=== PATIENT | female | born 1985 | race Caucasian/White ===

== ENCOUNTER 2019-06-07 18:40 | Inpatient (IN) | payer OTHER ==
[2019-06-07] MEDS ORDERED: Ringers Lactate 1,000 ML IV PRN (19:03)
[2019-06-07] MEDS ORDERED: PENICILLIN 5 MU in NA CHLORIDE 0.9% 100 ML IV ONE (19:03)
[2019-06-07 19:08] VITALS: BMI 34.4
[2019-06-07] MEDS ORDERED: OXYTOCIN/LR 20 UNIT/1,000 ML BAG IV ONE (19:29)
[2019-06-07 19:30] LABS: Absolute Lymphocytes (CBC) 1.4 K/uL (0.7-4.9); Basophils % 0.4 % (0-1.3); Hematocrit 29.1 % (36.0-45.0); Lymphocytes % 11.4 % (15.3-44.8); MPV 9.7 fL (7.6-11.3); RBC Red Blood Cell Count 3.67 M/uL (3.86-4.86)
[2019-06-07] MEDS ORDERED: OXYTOCIN/LR 20 UNIT/1,000 ML BAG IV SCH (20:00)
[2019-06-07] MEDS ORDERED: Ringers Lactate 1,000 ML IV SCH (20:00)
--- NOTE | 2019-06-07 20:06 | P.PN ---
Date of Service: 06/07/19 SPROM Irregular ctx. Plan: Augment with pitocin, placement of epidural catheter as desires. Exam normal, see dictation.
[2019-06-07] MEDS ORDERED: PENICILLIN 2.5 MU in NA CHLORIDE 0.9% 100 ML IV SCH (23:00)
[2019-06-07] MEDS ORDERED: PENICILLIN G POT 5 MU/VIAL IV ONE (23:15)
[2019-06-07] MEDS ORDERED: NA CHLORIDE 0.9% 50 ML IV ONE (23:26)
[2019-06-07] MEDS ORDERED: ROPIVACAINE HCL 100 ML IV ONE (23:56)
[2019-06-07] MEDS ORDERED: ROPIVACAINE HCL 0 ML ONE (23:56)
[2019-06-07] MEDS ORDERED: FENTANYL CITR 100 MCG/2 ML ONE (23:56)
[2019-06-08] MEDS ORDERED: DIPHENHYDRAMINE 25 MG TAB/CAP PO ONE (01:10)
[2019-06-08] MEDS ORDERED: Ringers Lactate 3,000 ML IV ONE (01:31)
--- NOTE | 2019-06-08 03:30 | P.PN ---
Date of Service: 06/08/19 CTX are irregular, some periodic heart rate changes noted, cx only 1+/2cm, 70% effaced, firm. Will increase augmentation, type and screen.
[2019-06-08] MEDS ORDERED: PENICILLIN G POT 5 MU/VIAL IV ONE (04:05)
[2019-06-08] MEDS ORDERED: NA CHLORIDE 0.9% 50 ML IV ONE (04:05)
[2019-06-08] MEDS ORDERED: EPHEDRINE SULF 50 MG/ML VIAL ONE (05:41)
[2019-06-08] MEDS ORDERED: LIDOCAINE 1% MPF 30 ML VIAL ONE (06:42)
[2019-06-08] MEDS ORDERED: METHYLERGONOVINE 0.2MG/ML AMP IM ONE (06:43)
[2019-06-08] MEDS ORDERED: CARBOPROST TROME 250 MCG/ML IM ONE (06:43)
[2019-06-08] MEDS ORDERED: CARBOPROST TROME 250 MCG/ML IM PRN (06:55)
[2019-06-08] MEDS ORDERED: METHYLERGONOVINE 0.2MG/ML AMP IM PRN (06:55)
[2019-06-08] MEDS ORDERED: METHYLERGONOVINE 0.2 MG TAB PO PRN (06:55)
[2019-06-08] MEDS ORDERED: ONDANSETRON 4 MG (ODT) TAB PO PRN (06:55)
[2019-06-08] MEDS ORDERED: Oxycodone HCl/Acetaminophen 1 TAB TAB PO PRN (06:55)
--- NOTE | 2019-06-08 06:59 | P.BOP ---
Preoperative diagnosis: 35 wk , SPROM Postoperative diagnosis: same, SCVD viable female infant Primary procedure: SCVD Secondary procedure: Repair 2 degree perineal laceration, Left periurethral laceration Estimated blood loss: <250ml Anesthesia: epidural Complications: None Transferred to: Other (273) Condition: Good
[2019-06-08] MEDS ORDERED: OXYTOCIN/LR 20 UNIT/1,000 ML BAG IV SCH (07:00)
[2019-06-08] MEDS: IBUPROFEN 200 MG TAB PO PRN ×2 (14:26→20:15)
[2019-06-08 20:53] LABS: RPR (Rapid Plasma Reagin) NON-REACT (NON-REACT)
[2019-06-09] MEDS: IBUPROFEN 200 MG TAB PO PRN (07:34)
[2019-06-09 07:46] VITALS: BP 117/65; TEMP 98.4
--- NOTE | 2019-06-09 12:37 | DN ---
Surgeon: Vasu Alicea MD Ms. Cano is a 33-year-old female, 2, para 1-0-0-1, now at 35 weeks' ges tation, who is admitted with spontaneous rupture of membranes. She is noted to be 2 cm on admission. She was begun on penicillin prophylaxis because of the delivery prior to 37 weeks with unknown GBS status. Labor course was complicated by occasional variable decelerations, treated with oxygen and m aternal positioning. She had a first stage of labor of approximately 12 hours, second stage of labor of approximately 15 minutes and delivered a 5-pound 15-ounce female , 9 and 9. w as noted to have a cord around the neck x1 loosely. She delivered spontaneously vertex OA present po sition. After delayed cord clamping this was clamped, cut, and the placed on mother's upper a bdomen. Cord blood was obtained. The placenta was spontaneously expelled and appeared to be intact. Intrauterine exam revealed no retained placental fragments. The patient received epidural anesthes ia with good benefit with this. She suffered a midline second-degree perineal laceration and a left periurethral laceration, both of which were repaired with 3-0 Vicryl suture. Estimated total blood l oss was less than 250 cc. DAVID/JULIANNA Voice ID: [id number] Report ID: [id number]
--- NOTE | 2019-06-09 14:04 | DS ---
Date of Discharge: 06/09/2019 Final Hospital Discharge Diagnoses: 1.35 week , delivered. 2.Iron-deficiency anemia. Complications: Spontaneous premature rupture of membranes, delivery. Procedures: Pitocin augmentation of labor, placement of epidural catheter, spontaneous controlled va ginal delivery of viable female infant, repair of perineal lacerations. Hospital Course: The patient is a 33-year-old female, 2, para 1-0-0-1, admitted wi th spontaneous rupture of membranes, not in active labor, at 35 weeks gestation. She underwent penic illin prophylaxis, Pitocin augmentation of labor, delivered a 5-pound 15-ounce female , 9 and 9. She was dismissed on the first day, ambulatory, on a select diet with routine pos t vaginal delivery, activity restrictions. Lab work included admission hemoglobin and hematocrit of 9.3 and 29.1 and dismissal 26.5. She is Rh positive blood type. Antibody screen negative. She was dismissed with prescription for Tylenol No. 3 #10 for pain relief, to be seen back in my office in 1 week with usual post vaginal delivery activi ty restrictions. DAVID/JULIANNA Voice ID: [id number] Report ID: [id number]
--- NOTE | 2019-06-09 14:09 | PREOPHP ---
Date of Admission: 06/07/2019 History Of Present Illness: Ms. Cano is a 33-year-old female, 2, para 1-0-0-1, at approximately 35 weeks gestation. She is admitted with spontaneous rupture of membranes, not in active labor. She noticed trickling initially and came to Labor and Delivery and noticed a g ush of fluid after that point. Infant has been active. Past Medical History: Please see record. Family History: Please see record. Review of Systems: She reports no recent cough, cold, fever, or chills. She has had productive cough when she lies down . She denies any breast knots or lumps. Baby has been active. She denies any vaginal bleeding or s potting. She denies any urine symptoms. She has tended toward constipation, has taken a laxative re cently. Physical Examination: General: Reveals female, in no apparent distress. Neck: Supple without adenopathy or thyromegaly. Lungs: Clear. Cardiac: Regular rate and rhythm without murmurs. Breasts: Not examined. Abdomen: Estimated weight approximately 6+ pounds. Pelvic: On admission was noted to be 2 cm dilated, vertex presentation. Plan: We will augment with Pitocin. We will be prophylaxed with penicillin. Encouraged early place ment of epidural catheter as she desires. DAVID/JULIANNA Voice ID: [id number]
[2019-06-11 03:42] LABS: HBsAG Nonreactive (Nonreactive)
== END 2019-06-09 12:10 | disposition home or self-care (01) | DRG 807 ==
LOC: L&D 18:40 → 2ND-WC 18:47
PROVIDERS: ADMIT Specialist; ATTEND Specialist
PROC: 10E0XZZ Delivery of Products of Conception, External Approach (ICD-10-PCS; principal; 2019-06-08)
PROC: 0KQM0ZZ Repair Perineum Muscle, Open Approach (ICD-10-PCS; 2019-06-08)
PROC: 0UQMXZZ Repair Vulva, External Approach (ICD-10-PCS; 2019-06-08)
DX: O60.14X0 Preterm labor third trimester with preterm delivery third trimester, not applicable or unspecified (principal); Z37.0 Single live birth; O70.1 Second degree perineal laceration during delivery; O71.82 Other specified trauma to perineum and vulva; Z3A.35 35 weeks gestation of pregnancy; O76 Abnormality in fetal heart rate and rhythm complicating labor and delivery; O69.81X0 Labor and delivery complicated by cord around neck, without compression, not applicable or unspecified; O90.81 Anemia of the puerperium; D50.9 Iron deficiency anemia, unspecified
CPT/HCPCS: 36415; 85014; 85025; 86592; 86850; 86900; 86901; 87340; J2210; J2590; J2795; J3010